=== PATIENT | female | born 1970 | race Caucasian/White ===

== ENCOUNTER 2018-06-09 06:12 | Emergency (ER) | payer MEDICARE, OTHER ==
[~2018-06-09] VITALS: Ht 162.6 cm; Wt 97.5 kg
[2018-06-09] MEDS ORDERED: PREG25 (06:33)
[2018-06-09] MEDS ORDERED: OXYC5 (06:33)
[2018-06-09] MEDS ORDERED: BACL10 (06:33)
[2018-06-09] MEDS ORDERED: FENTANYL1 EAC1 (06:34)
== END 2018-06-09 06:58 | disposition home or self-care (01) ==
LOC: ER 06:12
DX: K94.03 Colostomy malfunction (principal); G82.20 Paraplegia, unspecified; Z88.5 Allergy status to narcotic agent; Z91.018 Allergy to other foods; Z79.899 Other long term (current) drug therapy; Z79.891 Long term (current) use of opiate analgesic
CPT/HCPCS: 99282